=== PATIENT | male | born 1985 | race Caucasian/White ===

== ENCOUNTER 2016-10-01 21:01 | Emergency (ER) | payer SELFPAY ==
[2016-10-01 21:09] VITALS: BP 127/67
--- NOTE | 2016-10-01 21:21 | UC ---
Complaint Male HPI - HPI Summary HPI Summary: The patient comes in today for: 1. Dysuria: Onset: 4 days ago. Palliative/provocative: Urination makes it worse. Quality: Burning. Region: Severity: With urination, the pain is 10/10 Time: constant. Associated symptoms: Fever/chills: No temperature taken. HE stated that he had cold chills 4 days ago. None since then. Previous disease: He had a UTI before--6 years ago. He can't remember what treatment he got. Urethral discharge: He is not sure if he has an abnormal discharge. He has not noticed much of a discharge. He states that the discharge was clear. But it is not leaving any residue in his underwear. Urinary urgency: NOne Urinary frequency: Present and in small amounts. Prostate disease: None in his history. No ejaculation pain. He last had sex about a week ago before his symptoms. Sex partners: He only has one sex partner--his fiance. She has no known problems. She was checked "recently" and it was good. * - History of Current Complaint Chief Complaint: UCGI Stated Complaint: POSS UTI Time Seen by Provider: 10/01/16 21:13 Hx Obtained From: Patient - Allergies/Home Medications Allergies/Adverse Reactions: Allergies Allergy/AdvReac Type Severity Reaction Status Date / Time No Known Allergies Allergy Verified 08/20/13 21:39 PMH/Surg Hx/FS Hx/Imm Hx Previously Healthy: Yes - Surgical History Surgical History: None Surgery Procedure, Year, and Place: chest tube - Family History Known Family History: Negative: Hypertension, Diabetes - Social History Occupation: Employed Full-time Alcohol Use: Occasionally Substance Use Type: Marijuana Smoking Status (MU): Current Some Day Smoker Review of Systems Constitutional: Negative Skin: Rash Eyes: Negative ENT: Negative Respiratory: Negative Cardiovascular: Negative Gastrointestinal: Negative Genitourinary: Dysuria, Frequency All Other Systems Reviewed And Are Negative: Yes Physical Exam Triage Information Reviewed: Yes Appearance: Well-Appearing, No Pain Distress, Well-Nourished Vital Signs: Initial Vital Signs Temp 99.2 F 10/01/16 21:06 Pulse 79 10/01/16 21:06 Resp 16 10/01/16 21:06 BP 127/67 10/01/16 21:06 Pulse Ox 100 10/01/16 21:06 Vital Signs Reviewed: Yes Eyes: Positive: Conjunctiva Clear. Negative: Discharge ENT: Positive: Hearing grossly normal. Negative: Pharyngeal erythema, Nasal congestion, Nasal drainage, TM bulging, TM dull, TM red, Tonsillar swelling Dental: Negative: Gross Decay/Caries @, Dental Fracture @ Neck: Positive: Supple, Nontender, No Lymphadenopathy. Negative: Nuchal Rigidity Respiratory: Positive: Lungs clear, No respiratory distress, No accessory muscle use. Negative: Rhonchi, Wheezing Cardiovascular: Positive: RRR, No Murmur Abdomen Description: Positive: Nontender, No Organomegaly, Soft. Negative: Distended, Guarding Musculoskeletal: Positive: Strength Intact, ROM Intact, No Edema Neurological: Positive: Alert, Muscle Tone Normal Psychological: Positive: Age Appropriate Behavior, Consolable Skin: Negative: rashes, breakdown UC Physical Exam Vital Signs On Initial Exam: Initial Vitals Temp Pulse Resp BP Pulse Ox 99.2 F 79 16 127/67 100 10/01/16 21:06 10/01/16 21:06 10/01/16 21:06 10/01/16 21:06 10/01/16 21:06 - Genitalia Exam Male Genitalia: Other - Penis: He is circumcised. No urethral discharge even with milking. There are no ulcers or lesions on the penis. Scrotum: No lesions. Testes are down bilaterally with no tenderness. Diagnostics - Laboratory Diagnostic Studies Completed/Ordered: Urine screen: Specific gravity: 1.030. WBC: 1+. Nitrite: (-). Blood: 3+. Protein: 2+. glucose: (-) Complaint Male Course/Dx - Course Course Of Treatment: Patient was told of the low WBC urine screen. I told him that I don't know for sure what is causing his dysuria (UTI, vs STD vs dysuria syndrome). Will tentatively treat for UTI and test for GC/chlamydia. He will need follow up and recommend he be seen here after the holiday since he does not have a PCP. - Differential Dx/Diagnosis Provider Diagnoses: dysuria. UTI Discharge - Discharge Plan Condition: Stable Disposition: HOME Patient Education Materials: Urinary Tract Infection in Men (ED) Referrals: No Primary Care Phys,NOPCP [Primary Care Provider] - 1 Week (Please see your primary care provider (or us if you don't have one) after the holiday to see how you are doing. If you get worse, please be seen again by us or the ER. )
[2016-10-01] MEDS ORDERED: Phenazopyridine TAB* 100 MG PO ONE ×2 (21:47→21:49)
[2016-10-01] MEDS ORDERED: Nitrofurantoin Macrocrystals* 50 MG CAP PO ONE ×2 (21:59→22:00)
--- NOTE | 2016-10-04 07:52 | UC ---
Progress - Progress Note Progress Note: Please notify the patient that his urine culture showed a bacterial urinary tract infection. Suggest that he finish the antibiotic which he was prescribed. No GC/chlamydia testing back at this time.
--- NOTE | 2016-10-04 16:20 | UC ---
Progress - Progress Note Progress Note: Please notify the patient that his urine culture showed a bacterial urinary tract infection. Suggest that he finish the antibiotic which he was prescribed. No GC/chlamydia testing back at this time. 10/04/16 [id number]---please call pt---stop macrobid start Cipro 500mg po bid for 7 days---also let pt know his GC/Chlamydia is negative [facility]in [employer]
== END 2016-10-01 22:17 | disposition home or self-care (01) ==
LOC: UCEAST 21:01
DX: N39.0 Urinary tract infection, site not specified (principal)
CPT/HCPCS: 81003; 87077; 87086; 87186; 87491; 87591; 99203; A9270-GY; G0463

== ENCOUNTER 2017-04-15 10:11 | Emergency (ER) | payer SELFPAY ==
--- NOTE | 2017-04-15 11:40 | RAD ---
INDICATION: Left knee injury. TECHNIQUE: 2 views of the left knee were obtained. FINDINGS: The bones are normal alignment. No joint effusion or fracture is seen. Joint spaces appear maintained. IMPRESSION: NO EVIDENCE FOR FRACTURE.
[2017-04-15 11:52] VITALS: BP 130/76
--- NOTE | 2017-04-15 12:20 | ED ---
Laceration/Wound HPI - HPI Summary HPI Summary: Patient presents to the ED with CC of laceration to the left knee. He cut the knee with a jewel grinder as he fell on top of it. Denies any knee pain. Just notes to pain to the skin of the knee. He is otherwise healthy, takes no medications. Tetanus is unknown if UTD, maybe 7 years ago per patient. No swelling or redness around the knee. - History of Current Complaint Stated Complaint: CUT LEFT KNEE Time Seen by Provider: 04/15/17 10:16 Hx Obtained From: Patient Onset/Duration: Sudden Onset Aggravating: Movement Alleviating: Compression Timing: Constant Onset Severity: Mild Current Severity: Mild Pain Intensity: 0 Pain Scale Used: 0-10 Numeric - Allergy/Home Medications Allergies/Adverse Reactions: Allergies Allergy/AdvReac Type Severity Reaction Status Date / Time No Known Allergies Allergy Verified 08/20/13 21:39 PMH/Surg Hx/FS Hx/Imm Hx Previously Healthy: Yes Endocrine/Hematology History: Denies: Hx Diabetes, Hx Thyroid Disease Cardiovascular History: Denies: Hx Hypertension Respiratory History: Denies: Hx Asthma, Hx Chronic Obstructive Pulmonary Disease (COPD) GI History: Denies: Hx Ulcer - Surgical History Surgery Procedure, Year, and Place: chest tube - Immunization History Date of Tetanus Vaccine: unknown Hx Pertussis Vaccination: No Immunizations Up to Date: Yes Infectious Disease History: No Infectious Disease History: Denies: Hx Clostridium Difficile, Hx Hepatitis, Hx Human Immunodeficiency Virus (HIV), Hx of Known/Suspected MRSA, Hx Shingles, Hx Tuberculosis, Hx Known/ Suspected VRE, Hx Known/Suspected VRSA, History Other Infectious Disease, Traveled Outside the in Last 30 Days - Family History Known Family History: Negative: Hypertension, Diabetes - Social History Occupation: Employed Full-time Lives: With Family Alcohol Use: Occasionally Hx Substance Use: Yes Substance Use Type: Reports: Marijuana Hx Tobacco Use: Yes Smoking Status (MU): Current Some Day Smoker Review of Systems Constitutional: Negative Negative: Fever, Chills, Fatigue Eyes: Negative Cardiovascular: Negative Respiratory: Negative Negative: Abdominal Pain, Vomiting, Diarrhea Positive: no symptoms reported, see HPI Negative: Arthralgia, Myalgia Positive: Other - 2.5cm laceration Neurological: Negative All Other Systems Reviewed And Are Negative: Yes Physical Exam Triage Information Reviewed: Yes Vital Signs On Initial Exam: Initial Vitals Temp Pulse Resp BP Pulse Ox 98.5 F 113 18 154/75 99 04/15/17 10:12 04/15/17 10:12 04/15/17 10:12 04/15/17 10:12 04/15/17 10:12 Vital Signs Reviewed: Yes Appearance: Positive: No Pain Distress, Well-Nourished Skin: Positive: Warm, Skin Color Reflects Adequate Perfusion, Other - 2cm laceration to the anterior knee Head/Face: Positive: Normal Head/Face Inspection Eyes: Positive: EOMI, ROSSY Neck: Positive: No Lymphadenopathy Respiratory/Lung Sounds: Positive: Clear to Auscultation, Breath Sounds Present Cardiovascular: Positive: Pulses are Symmetrical in both Upper and Lower Extremities Musculoskeletal: Positive: Strength/ROM Intact Neurological: Positive: Speech Normal Psychiatric: Positive: Normal, Affect/Mood Appropriate Procedures - Laceration/Wound Repair 1 Location: lower extremity Description: Linear Anesthesia: Local, 1.0% Betadine Prep?: No Laceration/Wound Explored: contaminated, foreign body removed Closure: Single Layer Debridement: minimal Suture Type: Prolene - 3.0 Number of Sutures: 3 Layer Closure?: No Sterile Dressing Applied?: Yes Diagnostics - Vital Signs Vital Signs Temp Pulse Resp BP Pulse Ox 04/15/17 11:51 98.6 F 73 16 130/76 95 04/15/17 10:12 98.5 F 113 18 154/75 99 - Laboratory Lab Statement: Any lab studies that have been ordered have been reviewed, and results considered in the medical decision making process. Laceration Repair Course/Dx - Course Course Of Treatment: Patient presents with L anterior knee laceration. measruing 2.5cm length, .5 width and 0.2 depth. Timeout obtained. Cleansed wound. Irrigated with 80CC's normal saline. Lidocaine without epi as local anesthetic - 1.5 ml. 4-0 non-absorbable prolene. 3 sutures placed using simple interrupted technique. Patient tolerated well. Cleaned and dressed wound with telfa dressing. NV exam WNL. Sutures out in 7 days. Return precautions given. Patient OK with discharge. - Differential Dx Differental Diagnoses: Abrasion - Clinical Impression Provider Diagnoses: Laceration of knee Discharge - Discharge Plan Condition: Stable Disposition: HOME Prescriptions: Cephalexin CAP* [Keflex CAP*] 500 mg PO QID #20 cap MDD 4 Patient Education Materials: Care For Your Stitches (ED), Laceration (ED) Referrals: No Primary Care Phys,NOPCP [Primary Care Provider] - Additional Instructions: If you develop redness, streaks of red around the wound, swelling, abnormal drainage or you develop a fever - you need to come back to the ED right away. Suture removal in 7 days. Continue to keep covered x 24 hours, then leave open to air.
== END 2017-04-15 11:51 | disposition home or self-care (01) ==
LOC: ED 10:11
DX: S81.012A Laceration without foreign body, left knee, initial encounter (principal); W29.8XXA Contact with other powered hand tools and household machinery, initial encounter; Y92.9 Unspecified place or not applicable; Z72.0 Tobacco use
CPT/HCPCS: 12002; 99281

== ENCOUNTER 2017-06-03 07:56 | Observation (INO) | payer SELFPAY ==
[2017-06-03 08:46] LABS: Hematocrit 37 % (42-52); Mean Corpuscular HGB Conc 32 g/dl (31-36); Mean Corpuscular Hemoglobin 20 pg (27-31); Mean Corpuscular Volume 61 fL (80-94); Mean Platelet Volume 9 um3 (7.4-10.4); Platelet Count 227 10^3/ul (150-450); Red Blood Count 6.08 10^6/ul (4.0-5.4); Red Cell Distribution Width 16 % (10.5-15); White Blood Count 10.2 10^3/ul (3.5-10.8)
[2017-06-03 08:58] LABS: EGFR Non-African American 83.3 (>60)
[2017-06-03 09:08] LABS: ABS Basophils 0.1 10^3/ul (0-0.2); ABS Eosinophils 0.1 10^3/ul (0-0.6); ABS Lymphocytes 1.2 10^3/ul (1.0-4.8); ABS Monocytes 0.6 10^3/ul (0-0.8); ABS Neutrophils 8.2 10^3/ul (1.5-7.7); ABS Nucleated RBC 0 10^3/ul; Eosinophil % 1.4 % (0-6); Lymphocyte % 11.8 % (25-47); Nucleated Red Blood Cells % 0.1
--- NOTE | 2017-06-03 09:19 | HP ---
H&P (Free Text) History and Physical: Surgery Asked by to evaluate a pt. with abdominal pain. Leighton Lowery is a 31 y.o. male who reports he began to feel vague kendrick-umbilical abdominal pain 2 days ago. It has been gradually worsening till this morning he woke with the pain much worse and having localized in the RLQ. He feels nauseated, but hasn' t vomited. He denies fever, he denies dysuria. He has moved his bowels. He says the pain is sharp, somewhat intermittent, hurts more to cough or laugh. He has not had his usual appetite, he has never had something like this happen before. PMHx: none Meds: none NKDA ROS: had some bloody stool last week, has known hemorrhoids. FH: denies Vital Signs 06/03/17 06/03/17 06/03/17 07:58 08:07 08:09 Temperature 97.4 F Pulse Rate 80 75 Respiratory 17 Rate Blood Pressure 128/67 126/79 (mmHg) O2 Sat by Pulse 98 98 Oximetry 06/03/17 06/03/17 08:30 09:00 Temperature Pulse Rate 76 77 Respiratory Rate Blood Pressure 121/69 133/81 (mmHg) O2 Sat by Pulse 98 98 Oximetry PE: General: WDWN male in NAD HEENT: anicteric sclerae, moist oral mucosa, neg. cervical adenopathy lungs: clear to ausc. heart: reg. abd: good BS, soft, tender at McBurney's point with some guarding, no rebound, no referred tenderness. ext: neg. edema Laboratory Results - last 24 hr 06/03/17 06/03/17 06/03/17 08:33 08:33 08:33 WBC 10.2 RBC 6.08 H Hgb 12.0 L Hct 37 L MCV 61 L MCH 20 L MCHC 32 RDW 16 H Plt Count 227 MPV 9 Neut % (Auto) 80.8 Lymph % (Auto) 11.8 L [place] % (Auto) 5.4 Eos % (Auto) 1.4 Baso % (Auto) 0.6 Absolute Neuts (auto) 8.2 H Absolute Lymphs (auto) 1.2 Absolute Monos (auto) 0.6 Absolute Eos (auto) 0.1 Absolute Basos (auto) 0.1 Absolute Nucleated RBC 0 Nucleated RBC % 0.1 Hypochromasia 1+ Microcytosis 2+ Sodium 139 Potassium 4.0 Chloride 108 Carbon Dioxide 26 Anion Gap 5 BUN 19 Creatinine 1.04 Est GFR ( Amer) 107.1 Est GFR (Non-Af Amer) 83.3 BUN/Creatinine Ratio 18.3 Glucose 108 H Lactic Acid 0.9 Calcium 9.3 Total Bilirubin 0.70 AST 21 ALT 20 Alkaline Phosphatase 73 C-Reactive Protein 5.07 H Total Protein 7.1 Albumin 4.4 Globulin 2.7 Albumin/Globulin Ratio 1.6 Lipase 33 A/P: Probable appendicitis. Will proceed to OR for laparoscopic appendectomy. I have explained to him the nature of surgery, its risks, benefits, and alternatives. He understands and agrees to proceed. eMlissa
[2017-06-03 09:35] LABS: Urine Appearance Cloudy; Urine Blood Negative (Negative); Urine Color Yellow; Urine Ketones Negative (Negative); Urine Protein Negative (Negative); Urine Specific Gravity 1.017 (1.010-1.030); Urine Urobilinogen Negative (Negative)
[2017-06-03] MEDS ORDERED: Bupivacaine 0.25% SDV* 30 ML ONE (11:51)
[2017-06-03] MEDS ORDERED: ceFOXitin 2 GM IVPREMIX* 2 GM/50 ML BAG ONE (11:51)
[2017-06-03] MEDS ORDERED: Midazolam* 1 MG/ML 5 ML VIAL (5 MG) ONE (11:52)
[2017-06-03] MEDS ORDERED: fentaNYL* 50 MCG/ML 2 ML VIAL (100 MCG VIAL) ONE ×4 (11:52→14:34)
[2017-06-03] MEDS ORDERED: Propofol* 10 MG/ML 20 ML BTL IV PUSH ONE (11:52)
[2017-06-03] MEDS ORDERED: Atracurium* 10 MG/ML 10 ML VIAL ONE (11:53)
[2017-06-03] MEDS ORDERED: Succinylcholine* 20 MG/ML 10 ML VIAL ONE (11:53)
[2017-06-03] MEDS ORDERED: Ondansetron INJ* 2 MG/ML VIAL ONE ×2 (12:49→14:11)
[2017-06-03] MEDS ORDERED: Ketorolac INJ* 30 MG/ML 1 ML VIAL ONE (12:52)
[2017-06-03] MEDS ORDERED: DiMENhydriNATE IV* 50 MG/ML VIAL IV PUSH PRN (13:01)
[2017-06-03] MEDS ORDERED: oxyCODONE/Acetamin 5/325 MG* TAB PO PRN (13:01)
[2017-06-03] MEDS ORDERED: Naloxone* 0.4 MG/ML 1 ML VIAL IV PRN (13:01)
[2017-06-03] MEDS ORDERED: HYDROmorphone INJ* 1 MG/ML CARPUJECT SYRINGE IV PRN (13:01)
[2017-06-03] MEDS ORDERED: Ondansetron INJ* 2 MG/ML VIAL IV PRN (13:01)
[2017-06-03] MEDS ORDERED: HYDROcodone/ACETAMIN 5-325 MG* 1 TAB PO PRN (13:01)
[2017-06-03] MEDS ORDERED: Glycopyrrolate IV* 0.2 MG/ML 1 ML VIAL ONE (13:13)
[2017-06-03] MEDS ORDERED: Neostigmine Methylsulfate* 2 MG/2 ML SYRINGE ONE (13:13)
--- NOTE | 2017-06-03 13:31 | BRIEFOPN ---
Brief Operative Note - Surgery Procedures: 06/03/17 Op Note Pre-op dx: Appendicitis Post-op dx: same Procedure: laparoscopic appendectomy Surgeon: [place] Asst: none Anesth: general SCDs on during surgery Abx: given pre-op Complications: none Pt. tolerated procedure well and was transferred to in a stable condition. CLFoster
[2017-06-03] MEDS: fentaNYL* 50 MCG/ML 2 ML VIAL (100 MCG VIAL) IV PRN ×5 (13:42→14:35)
[2017-06-03] MEDS: oxyCODONE/Acetamin 5/325 MG* TAB PO PRN ×2 (18:18→21:37)
[2017-06-03] MEDS: NS 0.9% IVPB SCH (18:35)
[2017-06-03] MEDS: CEFOXITIN IVPB SCH (18:35)
[2017-06-04] MEDS: NS 0.9% IVPB SCH ×2 (00:45→06:36)
[2017-06-04] MEDS: CEFOXITIN IVPB SCH ×2 (00:45→06:36)
[2017-06-04] MEDS: oxyCODONE/Acetamin 5/325 MG* TAB PO PRN ×2 (04:21→08:42)
--- NOTE | 2017-06-04 07:18 | PN ---
Progress Note - Progress Note Date of Service: 06/04/17 Note: Surgery Mr. Lowery feels better. He has tolerated diet and been able to ambulate. Vital Signs 06/03/17 06/03/17 06/03/17 07:58 08:07 08:09 Temperature 97.4 F Pulse Rate 80 75 Respiratory 17 Rate Blood Pressure 128/67 126/79 (mmHg) O2 Sat by Pulse 98 98 Oximetry 06/03/17 06/03/17 06/03/17 08:30 09:00 09:30 Temperature Pulse Rate 76 77 76 Respiratory Rate Blood Pressure 121/69 133/81 112/68 (mmHg) O2 Sat by Pulse 98 98 98 Oximetry 06/03/17 06/03/17 06/03/17 10:00 10:24 13:28 Temperature 97.4 F 97.9 F Pulse Rate 69 69 95 Respiratory 15 18 Rate Blood Pressure 123/66 123/66 135/82 (mmHg) O2 Sat by Pulse 97 97 100 Oximetry 06/03/17 06/03/17 06/03/17 13:35 13:40 13:42 Temperature Pulse Rate 78 62 Respiratory 15 22 22 Rate Blood Pressure 133/80 135/83 (mmHg) O2 Sat by Pulse 100 100 Oximetry 06/03/17 06/03/17 06/03/17 13:45 14:00 14:15 Temperature Pulse Rate 66 66 71 Respiratory 12 14 12 Rate Blood Pressure 134/83 131/81 128/86 (mmHg) O2 Sat by Pulse 99 98 97 Oximetry 06/03/17 06/03/17 06/03/17 14:23 14:32 14:35 Temperature Pulse Rate Respiratory 14 14 16 Rate Blood Pressure (mmHg) O2 Sat by Pulse Oximetry 06/03/17 06/03/17 06/03/17 14:45 15:14 15:22 Temperature 99.0 F 99.0 F 99.0 F Pulse Rate 79 70 70 Respiratory 14 16 16 Rate Blood Pressure 130/84 128/68 128/68 (mmHg) O2 Sat by Pulse 97 98 98 Oximetry 06/03/17 06/03/17 06/03/17 16:19 16:35 17:22 Temperature 98.9 F 99.1 F Pulse Rate 63 81 Respiratory 18 18 18 Rate Blood Pressure 130/73 137/70 (mmHg) O2 Sat by Pulse 100 98 Oximetry 06/03/17 06/03/1706/03/18 18:06 18:18 19:22 Temperature Pulse Rate Respiratory 18 18 16 Rate Blood Pressure (mmHg) O2 Sat by Pulse Oximetry 06/03/17 06/03/17 06/03/17 19:34 21:35 21:36 Temperature 98.1 F 99.0 F Pulse Rate 65 67 Respiratory 16 16 18 Rate Blood Pressure 130/68 137/73 (mmHg) O2 Sat by Pulse 99 96 Oximetry 06/03/17 06/03/17 06/04/17 21:37 23:49 00:44 Temperature 98.9 F Pulse Rate 58 Respiratory 16 16 16 Rate Blood Pressure 124/64 (mmHg) O2 Sat by Pulse 99 Oximetry 06/04/17 06/04/17 06/04/17 02:35 04:18 04:21 Temperature 97.8 F Pulse Rate 60 Respiratory 16 16 Rate Blood Pressure 123/64 (mmHg) O2 Sat by Pulse 99 99 Oximetry 06/04/17 06:39 Temperature Pulse Rate Respiratory 16 Rate Blood Pressure (mmHg) O2 Sat by Pulse Oximetry Abd: good BS, soft, non-tender Incisions with some old blood, no signs infection. Intake & Output 06/03/17 06/04/17 06/04/17 22:59 06:59 14:59 Intake Total 819.4 460 Output Total 400 0 Balance 419.4 460 Weight 170 lb Intake: IV Fluids 99.4 220 ABX - CEFOXITIN 99.4 220 Oral 720 240 Output: Urine 400 0 Other: Estimated Void Large # Bowel Movements 0 # Voids 1 Laboratory Results - last 24 hr 06/03/17 06/03/17 06/03/17 08:33 08:33 08:33 WBC 10.2 RBC 6.08 H Hgb 12.0 L Hct 37 L MCV 61 L MCH 20 L MCHC 32 RDW 16 H Plt Count 227 MPV 9 Neut % (Auto) 80.8 Lymph % (Auto) 11.8 L [place] % (Auto) 5.4 Eos % (Auto) 1.4 Baso % (Auto) 0.6 Absolute Neuts (auto) 8.2 H Absolute Lymphs (auto) 1.2 Absolute Monos (auto) 0.6 Absolute Eos (auto) 0.1 Absolute Basos (auto) 0.1 Absolute Nucleated RBC 0 Nucleated RBC % 0.1 Hypochromasia 1+ Microcytosis 2+ Sodium 139 Potassium 4.0 Chloride 108 Carbon Dioxide 26 Anion Gap 5 BUN 19 Creatinine 1.04 Est GFR ( Amer) 107.1 Est GFR (Non-Af Amer) 83.3 BUN/Creatinine Ratio 18.3 Glucose 108 H Lactic Acid 0.9 Calcium 9.3 Total Bilirubin 0.70 AST 21 ALT 20 Alkaline Phosphatase 73 C-Reactive Protein 5.07 H Total Protein 7.1 Albumin 4.4 Globulin 2.7 Albumin/Globulin Ratio 1.6 Lipase 33 Urine Color Urine Appearance Urine pH Ur Specific [place] Urine Protein Urine Ketones Urine Blood Urine Nitrate Urine Bilirubin Urine Urobilinogen Ur Leukocyte Esterase Urine Glucose 06/03/17 09:15 WBC RBC Hgb Hct MCV MCH MCHC RDW Plt Count MPV Neut % (Auto) Lymph % (Auto) [place] % (Auto) Eos % (Auto) Baso % (Auto) Absolute Neuts (auto) Absolute Lymphs (auto) Absolute Monos (auto) Absolute Eos (auto) Absolute Basos (auto) Absolute Nucleated RBC Nucleated RBC % Hypochromasia Microcytosis Sodium Potassium Chloride Carbon Dioxide Anion Gap BUN Creatinine Est GFR ( Amer) Est GFR (Non-Af Amer) BUN/Creatinine Ratio Glucose Lactic Acid Calcium Total Bilirubin AST ALT Alkaline Phosphatase C-Reactive Protein Total Protein Albumin Globulin Albumin/Globulin Ratio Lipase Urine Color Yellow Urine Appearance Cloudy Urine pH 8.0 Ur Specific [place] 1.017 Urine Protein Negative Urine Ketones Negative Urine Blood Negative Urine Nitrate Negative Urine Bilirubin Negative Urine Urobilinogen Negative Ur Leukocyte Esterase Negative Urine Glucose Negative POD#1 s/p lap appy doing well, can go home on abx and norco. CLFoster
[2017-06-04 08:07] VITALS: BP 132/74
[2017-06-04] MEDS ORDERED: Amoxicillin/Clavulanate TAB* 875 MG PO SCH (09:00)
--- NOTE | 2017-06-04 09:46 | ED ---
Carlos Pedersen Julia, scribed for Felipe Douglass MD on 06/03/17 at 0833 . Abdominal Pain/Male - HPI Summary HPI Summary: This patient is a 31 year old M presenting to [facility] with a chief complaint of umbilical abdominal pain for the past couple of days worsening to the RLQ this morning when it woke him from sleep at 04:00. Patient reports nausea and decreased appetite beginning today. Patient denies fever. The patient rates the pain 9/10 in severity. - History of Current Complaint Chief Complaint: EDAbdPain Stated Complaint: ABD PAIN Time Seen by Provider: 06/03/17 08:13 Hx Obtained From: Patient Onset/Duration: Lasting Days, Worse Since - 04:00 Timing: Constant Severity Initially: Mild Severity Currently: Severe Pain Intensity: 9 Pain Scale Used: 0-10 Numeric Location: Discrete At: RLQ, Umbilical Associated Signs And Symptoms: Positive: Decreased Appetite, Nausea - Allergies/Home Medications Allergies/Adverse Reactions: Allergies Allergy/AdvReac Type Severity Reaction Status Date / Time No Known Allergies Allergy Verified 06/03/17 08:14 PMH/Surg Hx/FS Hx/Imm Hx Endocrine/Hematology History: Denies: Hx Diabetes, Hx Thyroid Disease Cardiovascular History: Denies: Hx Hypertension Respiratory History: Denies: Hx Asthma, Hx Chronic Obstructive Pulmonary Disease (COPD) GI History: Denies: Hx Ulcer - Surgical History Surgery Procedure, Year, and Place: chest tube - Immunization History Date of Tetanus Vaccine: unknown Infectious Disease History: No Infectious Disease History: Denies: Hx Clostridium Difficile, Hx Hepatitis, Hx Human Immunodeficiency Virus (HIV), Hx of Known/Suspected MRSA, Hx Shingles, Hx Tuberculosis, Hx Known/ Suspected VRE, Hx Known/Suspected VRSA, History Other Infectious Disease, Traveled Outside the [place] in Last 30 Days - Family History Known Family History: Negative: Hypertension, Diabetes - Social History Alcohol Use: Rare Alcohol Amount: monthly Hx Substance Use: Yes Substance Use Type: Reports: Marijuana Hx Tobacco Use: Yes Smoking Status (MU): Former Smoker Review of Systems Negative: Fever Positive: Abdominal Pain, Nausea - and decreased appetite All Other Systems Reviewed And Are Negative: Yes Physical Exam - Summary Physical Exam Summary: Appearance: The patient is well-nourished in no acute distress and in no acute pain. Skin: The skin is warm and dry and skin color reflects adequate perfusion. HEENT: The head is normocephalic and atraumatic. The pupils are equal and reactive. The conjunctivae are clear and without drainage. Nares are patent and without drainage. Mouth reveals moist mucous membranes and the throat is without erythema and exudate. The external ears are intact. The ear canals are patent and without drainage. The tympanic membranes are intact. Neck: the neck is supple with full range of motion and non-tender. There are no carotid bruits. There is no neck vein distension. Respiratory: Chest is non-tender. Lungs are clear to auscultation and breath sounds are symmetrical and equal. Cardiovascular: Heart is regular rate and rhythm. There is no murmur or rub auscultated. There is no peripheral edema and pulses are symmetrical and equal. Abdomen: The abdomen is tender over [place] point with positive rebound. There are normal bowel sounds heard in all four quadrants and there is no organomegaly palpated. Musculoskeletal: There is no back tenderness noted. Extremities are non-tender with full range of motion. There is good capillary refill. There is no peripheral edema or calf tenderness elicited. Neurological: Patient is alert and oriented to person, place and time. The patient has symmetrical motor strength in all four extremities. Cranial nerves are grossly intact. Deep tendon reflexes are symmetrical and equal in all four extremities. Psychiatric: The patient has an appropriate affect and does not exhibit any anxiety or depression. Triage Information Reviewed: Yes Vital Signs On Initial Exam: Initial Vitals Temp Pulse Resp BP Pulse Ox 97.4 F 80 17 128/67 98 06/03/17 07:58 06/03/17 07:58 06/03/17 07:58 06/03/17 07:58 06/03/17 07:58 Vital Signs Reviewed: Yes Diagnostics - Vital Signs Vital Signs Temp Pulse Resp BP Pulse Ox 06/03/17 08:09 75 98 06/03/17 08:07 126/79 06/03/17 07:58 97.4 F 80 17 128/67 98 - Laboratory Lab Results: Lab Results 06/03/17 06/03/17 06/03/17 Range/Units 08:33 08:33 08:33 WBC 10.2 (3.5-10.8) 10^3/ul RBC 6.08 H (4.0-5.4) 10^6/ul Hgb 12.0 L (14.0-18.0) g/dl Hct 37 L (42-52) % MCV 61 L (80-94) fL MCH 20 L (27-31) pg MCHC 32 (31-36) g/dl RDW 16 H (10.5-15) % Plt Count 227 (150-450) 10^3/ul MPV 9 (7.4-10.4) um3 Neut % (Auto) 80.8 (38-83) % Lymph % (Auto) 11.8 L (25-47) % [place] % (Auto) 5.4 (0-7) % Eos % (Auto) 1.4 (0-6) % Baso % (Auto) 0.6 (0-2) % Absolute Neuts (auto) 8.2 H (1.5-7.7) 10^3/ul Absolute Lymphs (auto) 1.2 (1.0-4.8) 10^3/ul Absolute Monos (auto) 0.6 (0-0.8) 10^3/ul Absolute Eos (auto) 0.1 (0-0.6) 10^3/ul Absolute Basos (auto) 0.1 (0-0.2) 10^3/ul Absolute Nucleated RBC 0 10^3/ul Nucleated RBC % 0.1 Hypochromasia 1+ Microcytosis 2+ Sodium 139 (133-145) mmol/L Potassium 4.0 (3.5-5.0) mmol/L Chloride 108 (101-111) mmol/L Carbon Dioxide 26 (22-32) mmol/L Anion Gap 5 (2-11) mmol/L BUN 19 (6-24) mg/dL Creatinine 1.04 (0.67-1.17) mg/dL Est GFR ( Amer) 107.1 (>60) Est GFR (Non-Af Amer) 83.3 (>60) BUN/Creatinine Ratio 18.3 (8-20) Glucose 108 H (70-100) mg/dL Lactic Acid 0.9 (0.5-2.0) mmol/L Calcium 9.3 (8.6-10.3) mg/dL Total Bilirubin 0.70 (0.2-1.0) mg/dL AST 21 (13-39) U/L ALT 20 (7-52) U/L Alkaline Phosphatase 73 (34-104) U/L C-Reactive Protein 5.07 H (< 5.00) mg/L Total Protein 7.1 (6.4-8.9) g/dL Albumin 4.4 (3.2-5.2) g/dL Globulin 2.7 (2-4) g/dL Albumin/Globulin Ratio 1.6 (1-3) Lipase 33 (11.0-82.0) U/L Urine Color Urine Appearance Urine pH (5-9) Ur Specific [place] (1.010-1.030) Urine Protein (Negative) Urine Ketones (Negative) Urine Blood (Negative) Urine Nitrate (Negative) Urine Bilirubin (Negative) Urine Urobilinogen (Negative) Ur Leukocyte Esterase (Negative) Urine Glucose (Negative) 06/03/17 Range/Units 09:15 WBC (3.5-10.8) 10^3/ul RBC (4.0-5.4) 10^6/ul Hgb (14.0-18.0) g/dl Hct (42-52) % MCV (80-94) fL MCH (27-31) pg MCHC (31-36) g/dl RDW (10.5-15) % Plt Count (150-450) 10^3/ul MPV (7.4-10.4) um3 Neut % (Auto) (38-83) % Lymph % (Auto) (25-47) % [place] % (Auto) (0-7) % Eos % (Auto) (0-6) % Baso % (Auto) (0-2) % Absolute Neuts (auto) (1.5-7.7) 10^3/ul Absolute Lymphs (auto) (1.0-4.8) 10^3/ul Absolute Monos (auto) (0-0.8) 10^3/ul Absolute Eos (auto) (0-0.6) 10^3/ul Absolute Basos (auto) (0-0.2) 10^3/ul Absolute Nucleated RBC 10^3/ul Nucleated RBC % Hypochromasia Microcytosis Sodium (133-145) mmol/L Potassium (3.5-5.0) mmol/L Chloride (101-111) mmol/L Carbon Dioxide (22-32) mmol/L Anion Gap (2-11) mmol/L BUN (6-24) mg/dL Creatinine (0.67-1.17) mg/dL Est GFR ( Amer) (>60) Est GFR (Non-Af Amer) (>60) BUN/Creatinine Ratio (8-20) Glucose (70-100) mg/dL Lactic Acid (0.5-2.0) mmol/L Calcium (8.6-10.3) mg/dL Total Bilirubin (0.2-1.0) mg/dL AST (13-39) U/L ALT (7-52) U/L Alkaline Phosphatase (34-104) U/L C-Reactive Protein (< 5.00) mg/L Total Protein (6.4-8.9) g/dL Albumin (3.2-5.2) g/dL Globulin (2-4) g/dL Albumin/Globulin Ratio (1-3) Lipase (11.0-82.0) U/L Urine Color Yellow Urine Appearance Cloudy Urine pH 8.0 (5-9) Ur Specific [place] 1.017 (1.010-1.030) Urine Protein Negative (Negative) Urine Ketones Negative (Negative) Urine Blood Negative (Negative) Urine Nitrate Negative (Negative) Urine Bilirubin Negative (Negative) Urine Urobilinogen Negative (Negative) Ur Leukocyte Esterase Negative (Negative) Urine Glucose Negative (Negative) Result Diagrams: 18 08:33 03 08:33 Lab Statement: Any lab studies that have been ordered have been reviewed, and results considered in the medical decision making process. Abdominal Pain Fem Course/Dx - Course Course Of Treatment: Mr. Lowery presented with a classical history for appendicitis and Dr. Duncan was contacted immediately. She came to the department and evaluated him. She chose to take him to surgery. He remained stable here. - Diagnoses Provider Diagnoses: Appendicitis - Provider Notifications Discussed Care Of Patient With: Romy Duncan - surgery Time Discussed With Above Provider: 08:36 Instructed by Provider To: Admit As Inpatient - for surgery Discharge - Discharge Plan Condition: Stable Disposition: ADMITTED TO [facility] The documentation as recorded by the Carlos cisse Julia accurately reflects the service I personally performed and the decisions made by me, Felipe Douglass MD.
--- NOTE | 2017-06-04 12:18 | OP ---
CC: [facility] OPERATIVE REPORT: DATE OF OPERATION: 06/03/17 DATE OF : 85 SURGEON: Romy Duncan MD. CONSULTING PSYCHOLOGIST: There was no dental chairside assistant for this case. PRE-OP DIAGNOSIS: Appendicitis. POST-OP DIAGNOSIS: Appendicitis. OPERATIVE PROCEDURE: Laparoscopic appendectomy. INDICATIONS: This patient is a 31-year-old male who presented to the emergency room with abdominal p ain consistent with appendicitis, prompting a plan for surgical intervention. DESCRIPTION OF PROCEDURE: He was brought to the operating room, placed on the OR table in the supine position and given general anesthesia. The abdomen was then prepped and draped in the usual sterile fashion. After infiltrating with local anesthetic, an incision was made in a curvilinear fashion in the infraumbilical area. Subcutaneous tissue was then divided bluntly. The fascia was grasped and incised and a 0 Vicryl stitch was placed on either side of the fascial incision. A trocar was insert ed into the abdomen and the abdomen was insufflated. Then under direct visualization, a suprapubic a nd a left flank port were placed after infiltrating with local anesthetic. The cecum was grasped, ro tated medially and exposed an acutely inflamed appendix with fibrotic mesoappendix and periappendicea l fat and had attachments to the lateral side wall. These were taken down with electrocautery. The base of the appendix was cleared and an Endo MADELINE stapler was fired across the base of the appendix. The mesoappendix was divided with an Endo MADELINE stapler as well. It took two firings of the stapling d evice to divide the mesoappendix. The appendix was then placed in an Endo Catch bag and withdrawn fr om the abdomen through the infraumbilical port site. A brief inspection of the abdomen revealed no o bvious abnormalities. The liver and gallbladder appeared normal. The small and large intestine that were visualized appeared normal. Visualization was limited. The right lower quadrant was irrigated with saline. Small bleeding points from the remnant of the mesoappendix were controlled with electroc autery. The irrigation fluid was evacuated. All ports were then withdrawn under direct visualizatio n. The previously placed 0 Vicryl was used to close the fascia of the infraumbilical port site. It required an additional 0 Vicryl to complete the closure as there was also an umbilical hernia. 4-0 M onocryl was used to close the skin of all incisions. Steri-Strips and a dry sterile dressing were ap plied. All sponge and instrument counts were correct. The patient tolerated the procedure well and was transferred to recovery in stable condition. [id number]/[facility] #: [id number]
--- NOTE | 2017-06-05 02:50 | DS ---
CC: [facility] DISCHARGE SUMMARY: DATE OF ADMISSION: 06/03/17 DATE OF DISCHARGE: 06/04/17 ADMISSION DIAGNOSIS: Appendicitis. DISCHARGE DIAGNOSIS: Appendicitis. PROCEDURES DURING THIS HOSPITALIZATION: Laparoscopic appendectomy. HISTORY OF PRESENT ILLNESS/HOSPITAL COURSE: Mr. Lowery is a 31-year-old male admitted with appendicit is. Please see admission history and physical for details of findings at the time of admission. He underwent laparoscopic appendectomy without difficulty. It was noted to be inflamed. So, he was adm itted overnight for antibiotics. The next morning, he was feeling well and was considered stable for discharge. He was discharged home with instructions to follow up as an outpatient. [id number]/[facility] #: [id number]
== END 2017-06-04 10:20 | disposition home or self-care (01) ==
LOC: ED 07:56 → OR 09:09 → SSU 13:24
PROVIDERS: ADMIT Surgery; ATTEND Surgery
PROC: 0DTJ4ZZ Resection of Appendix, Percutaneous Endoscopic Approach (ICD-10-PCS; principal; 2017-06-03 11:30)
DX: K35.89 Other acute appendicitis (principal); Z79.899 Other long term (current) drug therapy; F41.9 Anxiety disorder, unspecified; F84.5 Asperger's syndrome
CPT/HCPCS: 36415; 80053; 81003; 83605; 83690; 85025; 86140; 88304; A9270-GY; C1776; G0378; J0330; J0694; J1885; J2250; J2405; J2704; J3010

== ENCOUNTER 2017-09-18 09:18 | Emergency (ER) | payer SELFPAY ==
[2017-09-18 09:30] VITALS: BP 117/75
--- NOTE | 2017-09-18 10:30 | UC ---
Octavia Pedersen Elizabeth, scribed for Sasha Cat DO on 09/18/17 at 0951 . Complaint Male HPI - HPI Summary HPI Summary: This patient is a 31 year old M presenting to [facility] with a chief complaint of sensitive testicles and hematuria since 4 days ago. The patient reports differing amounts of blood in his urine each time and also notes the urine has been more malodorous. The patient notes that he only has unprotected sex with his fianc and that he ejaculated blood when having intercourse last night. The patient rates that the pain reached 3/10 in severity but says he has not had any pain in 3 days and currently rates his pain as 0/10. Symptoms aggravated by nothing. Symptoms alleviated by nothing. Patient denies dysuria, discharge, rectal pain, fever, chills, cough, headache, rash, nausea, or vomiting. Patient notes that he was treated for chlamydia 1 year ago. - History of Current Complaint Chief Complaint: UCGU Stated Complaint: PERSONAL Time Seen by Provider: 09/18/17 09:32 Hx Obtained From: Patient Onset/Duration: Sudden Onset, Lasting Days - 3 days ago, Still Present Timing: Intermittent Severity Initially: Mild Severity Currently: Mild Pain Intensity: 0 Pain Scale Used: 0-10 Numeric Location: Penis Aggravating Factor(s): Nothing Alleviating Factor(s): Nothing Associated Signs And Symptoms: Positive: Hematuria. Negative: Dysuria, Rectal Pain, Nausea, Vomiting(# Of Episodes =) - Allergies/Home Medications Allergies/Adverse Reactions: Allergies Allergy/AdvReac Type Severity Reaction Status Date / Time No Known Allergies Allergy Verified 09/18/17 09:30 PMH/Surg Hx/FS Hx/Imm Hx Other GI/ History: chlamydia (treated in 2016) - Surgical History Surgical History: Yes Surgery Procedure, Year, and Place: chest tube. Appendectomy, June 2017. Hernia Repair, June 2017 - Family History Known Family History: Negative: Hypertension, Diabetes - Social History Alcohol Use: Weekly Alcohol Amount: monthly Substance Use Type: Marijuana Substance Use Comment - Amount & Last Used: daily Smoking Status (MU): Former Smoker Type: Cigarettes Have You Smoked in the Last Year: No - Immunization History Most Recent Influenza Vaccination: unknown Most Recent Pneumonia Vaccination: NEVER Review of Systems Constitutional: Negative - NEGATIVE FEVER Skin: Negative - NEGATIVE RASH Respiratory: Negative - NEGATIVE COUGH, NEGATIVE SHORTNESS OF BREATH Gastrointestinal: Negative - NEGATIVE VOMITING, NEGATIVE NAUSEA, NEGATIVE RECTAL PAIN Genitourinary: Negative - NEGATIVE DYSURIA, NEGATIVE PENILE DISCHARGE, Hematuria , Other - sensitive testicles, malodorous urine All Other Systems Reviewed And Are Negative: Yes Physical Exam - Summary Physical Exam Summary: Appearance: Well-Appearing, No Pain Distress, Well-Nourished Eyes: conjunctiva clear, no discharge ENT: Hearing grossly normal, no muffled/hoarse voice. Neck: Normal, Supple Respiratory/Lung Sounds: Lungs clear, Normal breath sounds, No respiratory distress, No accessory muscle use Cardiovascular: RRR, No murmur Musculoskeletal: Normal Neurological: Alert, muscle tone normal Psychiatric:Normal, age appropriate behavior Skin: Normal, Warm, Dry, Normal color Testicular: exam of external genitalia normal, no swelling, no redness, no lesions, no tenderness, no discharge Triage Information Reviewed: Yes Vital Signs: Initial Vital Signs Temp 98.1 F 09/18/17 09:25 Pulse 67 09/18/17 09:25 Resp 18 09/18/17 09:25 BP 117/75 09/18/17 09:25 Pulse Ox 99 09/18/17 09:25 Vital Signs Reviewed: Yes Complaint Male Course/Dx - Course Course Of Treatment: This patient is a 31 year old M reporting sensitive testicles and hematuria since 4 days ago. Patient is in 0/10 pain currently and says he has not had any pain in 3 days. UA results reviewed with patient. Patient will be discharged with prescription for Bactrim and follow up from urologist. The patient is agreeable with this plan. Medications reviewed. Allergies reviewed. - Differential Dx/Diagnosis Provider Diagnoses: urinary tract infection (UTI), hematuria Discharge - Sign-Out/Discharge Documenting (check all that apply): Discharge/Admit/Transfer - Discharge Plan Condition: Stable Disposition: HOME Discharge Disposition Comment: discharge home Prescriptions: Sulfamethox/Trimethoprim DS* [Bactrim DS 800/160 TAB*] 1 tab PO BID #14 tab Patient Education Materials: Urinary Tract Infection in Men (ED), Hematuria (ED ) Referrals: No Primary Care Phys,NOPCP [Primary Care Provider] - Jeff Mendoza MD [Medical Doctor] - (follow up in 1-2 days) Additional Instructions: ANTIBIOTIC THERAPY: You have been given an antibiotic prescription. It's important that you take all the medication, unless instructed otherwise by your physician. Failure to complete the entire course can result in relapse of your condition. Common side effects of antibiotics include nausea, intestinal cramping, or diarrhea. Women may develop vaginal yeast infections, and babies can get yeast (thrush) in the mouth following the use of antibiotics. Contact your physician if you develop significant side effects from this medication. Allergy to this antibiotic can result in hives, wheezing, faintness, or itching. If symptoms of allergy occur, stop the medication and call the doctor. ANYTIME YOU TAKE AN ANTIBIOTIC, IT IS IMPORTANT TO REPLENISH THE BODY'S SUPPLY OF "GOOD BACTERIA." YOU CAN GET GOOD BACTERIA FROM HIGH QUALITY CULTURED FOODS SUCH LOCAL YOGURT, SOUR KRAUT, YUE FORD, NATURALLY FERMENTED PICKLES AND PROBIOTIC DRINKS. YOU CAN ALSO GET GOOD BACTERIA FROM A PROBIOTIC SUPPLEMENT. FOLLOW-UP CARE: You should establish with a private physician for follow-up care. If you are unable to get a timely appointment, or if you are worsening, call us or return for re-evaluation. An additional resource available to assist in finding the appropriate physician for your health care needs is the Physician Referral Center. You may contact them by calling [phone]. If you have a reoccurrence of pain or develop any new pain in your testicles or penis you should go to the ER immediately. The documentation as recorded by the Octavia cisse Elizabeth accurately reflects the service I personally performed and the decisions made by me, Sasha Cat DO.
--- NOTE | 2017-09-20 15:26 | UC ---
- Progress Note Progress Note: Urine final with few enterobacteriacae - suspected contamination. Needs f/u with urology as advised at urgent care visit Discharge - Sign-Out/Discharge Documenting (check all that apply): Post-Discharge Follow Up - Discharge Plan Condition: Stable Disposition: HOME Prescriptions: Sulfamethox/Trimethoprim DS* [Bactrim DS 800/160 TAB*] 1 tab PO BID #14 tab Patient Education Materials: Urinary Tract Infection in Men (ED), Hematuria (ED ) Referrals: No Primary Care Phys,NOPCP [Primary Care Provider] - Jeff Mendoza MD [Medical Doctor] - (follow up in 1-2 days) Additional Instructions: ANTIBIOTIC THERAPY: You have been given an antibiotic prescription. It's important that you take all the medication, unless instructed otherwise by your physician. Failure to complete the entire course can result in relapse of your condition. Common side effects of antibiotics include nausea, intestinal cramping, or diarrhea. Women may develop vaginal yeast infections, and babies can get yeast (thrush) in the mouth following the use of antibiotics. Contact your physician if you develop significant side effects from this medication. Allergy to this antibiotic can result in hives, wheezing, faintness, or itching. If symptoms of allergy occur, stop the medication and call the doctor. ANYTIME YOU TAKE AN ANTIBIOTIC, IT IS IMPORTANT TO REPLENISH THE BODY'S SUPPLY OF "GOOD BACTERIA." YOU CAN GET GOOD BACTERIA FROM HIGH QUALITY CULTURED FOODS SUCH LOCAL YOGURT, SOUR KRAUT, YUE FORD, NATURALLY FERMENTED PICKLES AND PROBIOTIC DRINKS. YOU CAN ALSO GET GOOD BACTERIA FROM A PROBIOTIC SUPPLEMENT. FOLLOW-UP CARE: You should establish with a private physician for follow-up care. If you are unable to get a timely appointment, or if you are worsening, call us or return for re-evaluation. An additional resource available to assist in finding the appropriate physician for your health care needs is the Physician Referral Center. You may contact them by calling [phone]. If you have a reoccurrence of pain or develop any new pain in your testicles or penis you should go to the ER immediately. - Billing Disposition and Condition Condition: STABLE Disposition: Home
== END 2017-09-18 10:35 | disposition home or self-care (01) ==
LOC: UCEAST 09:18
DX: N39.0 Urinary tract infection, site not specified (principal); R31.9 Hematuria, unspecified; Z86.19 Personal history of other infectious and parasitic diseases; Z87.891 Personal history of nicotine dependence
CPT/HCPCS: 81003; 87077; 87086; 87491; 87591; 99212; G0463

== ENCOUNTER 2019-03-09 08:34 | Emergency (ER) | payer BC, OTHER ==
[2019-03-09 08:46] VITALS: BP 110/71
--- NOTE | 2019-03-09 10:37 | UC ---
Throat Pain/Nasal Judd HPI - HPI Summary HPI Summary: SEVERAL DAYS OF SORE THROAT AND PAIN WITH SWALLOWING. NO COUGH, CONGESTION, FEVER, EAR PAIN. - History of Current Complaint Chief Complaint: UCGeneralIllness Stated Complaint: SORE THROAT Time Seen by Provider: 03/09/19 09:55 Hx Obtained From: Patient Onset/Duration: Gradual Onset, Lasting Days, Still Present Severity: Moderate Pain Intensity: 8 Pain Scale Used: 0-10 Numeric Cough: None Associated Signs & Symptoms: Positive: Negative - Allergies/Home Medications Allergies/Adverse Reactions: Allergies Allergy/AdvReac Type Severity Reaction Status Date / Time No Known Allergies Allergy Verified 03/09/19 08:42 Home Medications: Home Medications NK [No Home Medications Reported] 03/09/19 [History Confirmed 03/09/19] PMH/Surg Hx/FS Hx/Imm Hx Previously Healthy: Yes - Surgical History Surgical History: Yes Surgery Procedure, Year, and Place: chest tube. Appendectomy, June 2017. Hernia Repair, June 2017 - Family History Known Family History: Negative: Hypertension, Diabetes - Social History Alcohol Use: None Alcohol Amount: monthly Substance Use Type: Marijuana Substance Use Comment - Amount & Last Used: occasional Smoking Status (MU): Former Smoker Type: Cigarettes Length of Time of Smoking/Using Tobacco: a few years Have You Smoked in the Last Year: No - Immunization History Most Recent Influenza Vaccination: unknown Most Recent Pneumonia Vaccination: NEVER Review of Systems All Other Systems Reviewed And Are Negative: Yes Constitutional: Positive: Negative ENT: Positive: Sore Throat Respiratory: Positive: Negative Cardiovascular: Positive: Negative Gastrointestinal: Positive: Negative Physical Exam Triage Information Reviewed: Yes Appearance: Well-Appearing, No Pain Distress, Well-Nourished Vital Signs: Initial Vital Signs Temp 98.3 F 03/09/19 08:42 Pulse 81 03/09/19 08:42 Resp 16 03/09/19 08:42 BP 110/71 03/09/19 08:42 Pulse Ox 99 03/09/19 08:42 Laboratory Tests 03/09/19 08:52 Group A Strep Rapid Negative Vital Signs Reviewed: Yes Eyes: Positive: Conjunctiva Clear ENT: Positive: Hearing grossly normal, Pharynx normal, TMs normal, Other - SMALL RIGHT TONSIL STONE Neck: Positive: Supple, Nontender, No Lymphadenopathy Respiratory Exam: Normal Cardiovascular Exam: Normal Abdomen Description: Positive: Soft Musculoskeletal: Positive: No Edema Neurological: Positive: Alert Psychological: Positive: Age Appropriate Behavior Skin: Negative: Rashes Throat Pain/Nasal Course/Dx - Course Course Of Treatment: STREP NEGATIVE. LIKELY VIRAL ETIOLOGY OF SYMPTOMS. ENCOURAGED HYDRATION, REST AND OTC MEDICATIONS. SEEK FOLLOW-UP IF NOT IMPROVING EXPECTED. - Differential Dx/Diagnosis Provider Diagnosis: Acute pharyngitis Discharge ED - Sign-Out/Discharge Documenting (check all that apply): Patient Departure All imaging exams completed and their final reports reviewed: No Studies - Discharge Plan Condition: Stable Disposition: HOME Patient Education Materials: Pharyngitis (ED) Forms: *Gen. Provider Communication Referrals: [facility] [Outside] - If Needed Additional Instructions: STREP TEST NEGATIVE. YOUR SYMPTOMS ARE LIKELY VIRALLY MEDIATED AND SHOULD RESOLVE ON THEIR OWN WITH TIME. NO INDICATION FOR ANTIBIOTICS AT PRESENT. REST, STAY WELL HYDRATED, OTC MEDS NEEDED. SEEK FOLLOW-UP IF YOU ARE NOT IMPROVING OVER THE NEXT 1-2 WEEKS. CALL THE NUMBER BELOW FOR ASSISTANCE IN ESTABLISHING WITH A PCP An additional resource available to assist in finding the appropriate physician for your health care needs is [facility] ([facility]). You may contact them by calling [phone]. - Billing Disposition and Condition Condition: STABLE Disposition: Home
== END 2019-03-09 10:18 | disposition home or self-care (01) ==
LOC: UCEAST 08:34
DX: J02.9 Acute pharyngitis, unspecified (principal); Z87.891 Personal history of nicotine dependence
CPT/HCPCS: 87651; 99211; G0463